=== PATIENT | female | born 2000 | race Caucasian/White ===

== ENCOUNTER 2021-03-30 17:12 | Emergency (ER) | payer MEDICAID ==
--- NOTE | 2021-03-30 17:43 | EDM.PDOC ---
ED HPI GENERAL MEDICAL PROBLEM - General Chief Complaint: Allergic Reaction Stated Complaint: allergic reaction Time Seen by Provider: 03/30/21 17:30 Source of Information: Reports: Patient, Old Records, RN History Limitations: Reports: No Limitations - History of Present Illness INITIAL COMMENTS - FREE TEXT/NARRATIVE: 20 yo female presents with bilateral, L>R, eye redness and itching. The left eye also is puffy and hard to open. She has no hx of known allergies. She did take diphenhydramine 50 mg about an hour ago. No current issues with breathing or swallowing. Was tubing yesterday. Onset: Today (Present upon awakening, getting a little worse since then. ) Onset Date: 03/30/21 Duration: Hour(s):, Getting Worse Location: Reports: Face Quality: Reports: Other (itching) Severity: Mild Improves with: Reports: None Worsens with: Reports: Other (? time) Context: Reports: Other (See HPI) Associated Symptoms: Reports: No Other Symptoms Treatments SHIPPING AND RECEIVING CLERK: Reports: Other (see below) (See HPI) - Related Data Allergies Allergy/AdvReac Type Severity Reaction Status Date / Time No Known Allergies Allergy Verified 03/30/21 17:18 Home Meds: Home Meds Albuterol [Ventolin HFA] 1 puff INH Q4H PRN 03/30/21 [History] Budesonide [Pulmicort] 0.5 mg IH BID PRN 03/30/21 [History] Fluticasone Propionate [Flonase] 1 spray NENA DAILY 03/30/21 [History] Loratadine [Claritin] 10 mg PO DAILY 03/30/21 [History] Past Medical History Respiratory History: Reports: Asthma Social & Family History - Tobacco Use Tobacco Use Status *Q: Never Tobacco User Second Hand Smoke Exposure: No - Caffeine Use Caffeine Use: Reports: Coffee - Recreational Drug Use Recreational Drug Use: No ED ROS ALLERGIC REACTION - Review of Systems Review Of Systems: See Below Constitutional: Reports: No Symptoms HEENT: Reports: Other (bilat red and itchy eyes with L eyelid swelling) Respiratory: Reports: No Symptoms Cardiovascular: Reports: No Symptoms Skin: Reports: Pruritis (eyes and R wrist rash), Rash (around the R wrist ) ED EXAM GENERAL NO PERIP PULSE - Physical Exam Exam: See Below Exam Limited By: No Limitations General Appearance: Alert, WD/WN, No Apparent Distress Eye Exam: Bilateral Eye: Conjunctival Injection, Other (eye lids swollen on left eye) Ears: Normal External Exam, Normal Canal, Hearing Grossly Normal Nose: Normal Inspection, No Blood Throat/Mouth: Normal Inspection, Normal Lips, Normal Oropharynx, Normal Voice, No Airway Compromise Head: Atraumatic, Normocephalic Neck: Normal Inspection Respiratory/Chest: No Respiratory Distress, Lungs Clear, Normal Breath Sounds, No Accessory Muscle Use Cardiovascular: Regular Rate, Rhythm Extremities: Normal Inspection Neurological: Alert, Oriented, CN II-XII Intact, Normal Cognition Psychiatric: Normal Affect, Normal Mood Skin Exam: Warm, Dry, Intact. No: No Rash (rash near R wrist consistent with contact dermatitis) Course - Vital Signs Last Recorded V/S: Last Vital Signs Temp 36.9 C 03/30/21 17:24 Pulse 83 03/30/21 17:24 Resp 24 H 03/30/21 17:24 BP 134/89 03/30/21 17:24 Pulse Ox 97 03/30/21 17:24 Departure - Departure Time of Disposition: 17:43 Disposition: Home, Self-Care 01 Condition: Good Clinical Impression: Allergic conjunctivitis Qualifiers: Laterality: bilateral Qualified Code(s): H10.13 - Acute atopic conjunctivitis, bilateral - Discharge Information *PRESCRIPTION DRUG MONITORING PROGRAM REVIEWED*: Not Applicable *COPY OF PRESCRIPTION DRUG MONITORING REPORT IN PATIENT LUIS CARLOS: Not Applicable Instructions: Allergic Conjunctivitis, Adult, [id number] Referrals: PCP,None [Primary Care Provider] - Additional Instructions: Continue prednisone as directed. Diphenhydramine 50 mg every 4 hrs. Don't not rub your eye. Only touch your eyes with freshly washed hands. Recheck with your doctor later in the week. Sepsis Event Note (ED) - Evaluation Sepsis Screening Result: No Definite Risk - Focused Exam Vital Signs: Vital Signs Temp Pulse Resp BP Pulse Ox 03/30/21 17:24 36.9 C 83 24 H 134/89 97
== END 2021-03-30 17:58 | disposition home or self-care (01) ==
LOC: JP.ED 17:12
DX: H10.13 Acute atopic conjunctivitis, bilateral (principal); R21 Rash and other nonspecific skin eruption; J45.909 Unspecified asthma, uncomplicated; Z79.899 Other long term (current) drug therapy
CPT/HCPCS: 99283

== ENCOUNTER 2021-05-20 17:54 | Emergency (ER) | payer MEDICAID ==
--- NOTE | 2021-05-20 19:30 | EDM.PDOC ---
ED HPI GENERAL MEDICAL PROBLEM - General Chief Complaint: General Stated Complaint: HIGH BLOOD PRESSURE, FEELS NUMB Time Seen by Provider: 05/20/21 19:06 Source of Information: Reports: Patient, Family (S.O. at bedside) History Limitations: Reports: No Limitations - History of Present Illness INITIAL COMMENTS - FREE TEXT/NARRATIVE: chief complaint: medication reaction This is a 20 year old female presents to the ER with Boyfriend, she reports she is currently being treated for a bladder infection, she has take 5 days of Septra DS, today [facility] called her and instructed to stop Septra and start Nitrofurantoin. She took her first dose at 4:30 pm., within 30 minutes developed racing heartbeat, high blood pressure, chest tightness and numbness. The Nurse at her job took her pulse and it was 130 with Oxygen sat 99%. She was sent to ER for further evaluation. Now reports her chest still feels tight, numbness and racing heartbeats have resolved. denies any fever, chills, throat swelling or rash. denies or . Onset: Today Onset Date: 05/20/21 Onset Time: 16:30 Duration: Hour(s):, Improving Location: Reports: Generalized Quality: Reports: Other (medication reaction) Severity: Mild Improves with: Reports: None Worsens with: Reports: None Context: Reports: Other (took a Macrobid at 1630) Associated Symptoms: Reports: Shortness of Breath (chest tightness) - Related Data Allergies Allergy/AdvReac Type Severity Reaction Status Date / Time No Known Allergies Allergy Verified 05/20/21 18:39 Home Meds: Home Meds Albuterol [Ventolin HFA] 1 puff INH Q4H PRN 03/30/21 [History] Budesonide [Pulmicort] 0.5 mg IH BID PRN 03/30/21 [History] Fluticasone Propionate [Flonase] 1 spray NENA DAILY 03/30/21 [History] Loratadine [Claritin] 10 mg PO DAILY 03/30/21 [History] Nitrofurantoin [place]/Macrocryst [Nitrofurantoin [place]-MCR] 100 mg PO BID 05/20/21 [History] Sulfamethoxazole/Trimethoprim [Bactrim Ds Tablet] 1 each PO ASDIRECTED 05/20/21 [History] Past Medical History Respiratory History: Reports: Asthma - Past Surgical History Head Surgeries/Procedures: Reports: None Respiratory Surgical History: Reports: None Dermatological Surgical History: Reports: None Social & Family History - Tobacco Use Tobacco Use Status *Q: Never Tobacco User Second Hand Smoke Exposure: No - Caffeine Use Caffeine Use: Reports: Coffee - Recreational Drug Use Recreational Drug Use: No - Living Situation & Occupation Living situation: Reports: with Significant Other Occupation: Employed (Lives with Significant Other, employed at [employer]ARK[employer]NA[employer] at [employer]) ED ROS GENERAL - Review of Systems Review Of Systems: See Below Constitutional: Reports: Malaise, Other (chest tightness, feeling of unwelliness) HEENT: Reports: No Symptoms Respiratory: Reports: Shortness of Breath Cardiovascular: Reports: Dyspnea on Exertion Endocrine: Reports: No Symptoms GI/Abdominal: Reports: No Symptoms : Reports: No Symptoms Musculoskeletal: Reports: No Symptoms Skin: Reports: No Symptoms Neurological: Reports: Numbness (in fingers and hands) Psychiatric: Reports: Anxiety Hematologic/Lymphatic: Reports: No Symptoms Immunologic: Reports: Other (medication reaction not a full anaphylaxis) ED EXAM, GENERAL - Physical Exam Exam: See Below Exam Limited By: No Limitations General Appearance: Alert, WD/WN, Mild Distress, Other (pleasant neat and well groomed female in Nursing Uniform with SO at bedside) Eye Exam: Bilateral Eye: EOMI, PERRL Ears: Normal External Exam, Normal Canal, Hearing Grossly Normal, Normal TMs Nose: Normal Inspection, Normal Mucosa, No Blood Throat/Mouth: Normal Inspection, Normal Lips, Normal Teeth, Normal Gums, Normal Oropharynx, Normal Voice, No Airway Compromise Head: Atraumatic, Normocephalic Neck: Normal Inspection, Supple, Non-Tender, Full Range of Motion Respiratory/Chest: No Respiratory Distress, Lungs Clear, Normal Breath Sounds, No Accessory Muscle Use, Chest Non-Tender Cardiovascular: Normal Peripheral Pulses, Regular Rate, Rhythm, No Edema, No Gallop, No JVD, No Murmur, No Rub Peripheral Pulses: 2+: Radial (L), Radial (R) GI/Abdominal: Soft, Non-Tender Back Exam: Normal Inspection Extremities: Normal Inspection, Normal Range of Motion, Non-Tender, Normal Capillary Refill, No Pedal Edema Neurological: No Motor/Sensory Deficits Psychiatric: Anxious, Tearful Skin Exam: Warm, Dry, Intact, Normal Color, No Rash Lymphatic: No Adenopathy Course - Vital Signs Last Recorded V/S: Last Vital Signs Temp 97.8 F 05/20/21 18:42 Pulse 98 05/20/21 18:42 Resp 20 05/20/21 18:42 BP 125/85 05/20/21 18:42 Pulse Ox 96 05/20/21 18:42 - Orders/Labs/Meds Meds: Medications Discontinued Medications Generic Name Dose Route Start Last Admin Trade Name Steffany PRN Reason Stop Dose Admin Diphenhydramine HCl 25 mg 05/20/21 19:21 05/20/21 19:36 Diphenhydramine 25 Mg Cap PO 05/20/21 19:22 25 mg ONETIME ONE Administration Famotidine 20 mg 05/20/21 19:20 05/20/21 19:36 Famotidine 20 Mg Tab PO 05/20/21 19:21 20 mg ONETIME ONE Administration Prednisone 20 mg 05/20/21 19:20 05/20/21 19:36 Prednisone 20 Mg Tab PO 05/20/21 19:21 20 mg ONETIME ONE Administration - Re-Assessments/Exams Free Text/Narrative Re-Assessment/Exam: discussed with Shena and her Boyfriend- signs and symptoms of medication reactions, the medication will be completely out of symptoms within 12 hours. will give medication in ER and monitor for 30 mins. At this time her vital signs are stable with pulse 80 resp rate 16 Oxygen sat 99% on room air, blood pressure 120's/70's medication order -Prednisone 20 mg po once -Benadryl 25 mg po once -Famotidine 20 mg po once discussed stopping Nitrofurantoin- and list as a medication reaction will order Keflex 500 mg po bid x 7 days for urinary tract infection work slip for no work today and tomorrow patient and partner agree with plan of care. 05/20/21 19:47 vital signs 97.8-98-20 B/P 125/85 oxygen sat 96% on room air. no distress noted. 05/20/21 20:13 patient reports all symptoms have resolved, feeling better but tired advised to continue over the counter Benadryl 25 mg every 4 to 6 hours as needed for the next 24 hours. she has Benadryl at home, agrees with plan of care discharge to home Departure - Departure Time of Disposition: 20:16 Disposition: Home, Self-Care 01 Condition: Good Clinical Impression: UTI, Urinary tract infectious disease Medication adverse effect Qualifiers: Encounter type: initial encounter Qualified Code(s): T50.905A - Adverse effect of unspecified drugs, medicaments and biological substances, initial encounter - Discharge Information *PRESCRIPTION DRUG MONITORING PROGRAM REVIEWED*: Not Applicable *COPY OF PRESCRIPTION DRUG MONITORING REPORT IN PATIENT LUIS CARLOS: Not Applicable Instructions: Urinary Tract Infection, Adult, [id number] Referrals: PCP,None [Primary Care Provider] - Forms: ED Department Discharge, ED Return to Work/School Form Care Plan Goals: Medication reaction- Nitrofurantoin -rest -drink plenty of fluids, stay well hydrated -no work today and tomorrow -return to ER if symptoms return or have any concerns Sepsis Event Note (ED) - Evaluation Sepsis Screening Result: No Definite Risk - Focused Exam Vital Signs: Vital Signs Temp Pulse Resp BP Pulse Ox 05/20/21 18:42 97.8 F 98 20 125/85 96 05/20/21 18:28 97.8 F 98 20 125/85 96 - Problem List & Annotations (1) Medication adverse effect SNOMED Code(s): 17854011 Code(s): T50.905A - ADVERSE EFFECT OF UNSP DRUG/MEDS/BIOL SUBST, INIT Status: Acute Priority: High Current Visit: Yes Qualifiers: Encounter type: initial encounter Qualified Code(s): T50.905A - Adverse effect of unspecified drugs, medicaments and biological substances, initial encounter (2) Urinary tract infection SNOMED Code(s): 09478426 Code(s): N39.0 - URINARY TRACT INFECTION, SITE NOT SPECIFIED Status: Acute Current Visit: Yes - Problem List Review Problem List Initiated/Reviewed/Updated: Yes - Assessment/Plan Plan: Medication reaction- Nitrofurantoin -rest -continue over the counter Benadryl 25 mg by mouth every 4 to 6 hours x 24 hours. -drink plenty of fluids, stay well hydrated -no work today and tomorrow -return to ER if symptoms return or have any concerns Urinary Tract Infection- currently treated with Nitrofurantoin -stop Nitrofurantoin -start Keflex 500 mg po bid x 7 days follow up with Primary Care for recheck in 3-5 days
[2021-05-20] MEDS: predniSONE 20 MG Tab PO ONE (19:36)
[2021-05-20] MEDS: diphenhydrAMINE 25 MG Cap PO ONE (19:36)
[2021-05-20] MEDS: Famotidine 20 MG Tab PO ONE (19:36)
== END 2021-05-20 20:25 | disposition home or self-care (01) ==
LOC: JP.ED 17:54
DX: R00.0 Tachycardia, unspecified (principal); R03.0 Elevated blood-pressure reading, without diagnosis of hypertension; R07.89 Other chest pain; R20.0 Anesthesia of skin; N39.0 Urinary tract infection, site not specified; T37.8X5A Adverse effect of other specified systemic anti-infectives and antiparasitics, initial encounter; J45.909 Unspecified asthma, uncomplicated; Z79.899 Other long term (current) drug therapy
CPT/HCPCS: 99284; A9270; J7512